=== PATIENT | female | born 1985 | race African-American/Black ===

== ENCOUNTER 2019-10-09 11:14 | Emergency (ER) | payer OTHER, SELFPAY ==
[2019-10-09 11:32] VITALS: BP 148/89; PULSE 87; RESP 16; TEMP 37.1; O2SAT 100
--- NOTE | 2019-10-09 11:34 | ED.URI ---
HPI - URI/Sore Throat General Chief Complaint: Upper Respiratory Infection Stated Complaint: Sore throat/migrane Time Seen by Provider: 10/09/19 11:34 Source: patient and RN notes reviewed Mode of arrival: ambulatory Limitations: no limitations History of Present Illness HPI Narrative: 34-year-old female presents with concern for 11-day history of nasal congestion, foul tasting postnasal drainage, lymph node tenderness. Reports a history of asthma, however she is not had an inhaler to use. She denies fever, malaise, body aches. Denies cough, shortness of breath MD elicited complaint: other (Postnasal drainage) Related Data Allergies Allergy/AdvReac Type Severity Reaction Status Date / Time No Known Allergies Allergy Verified 10/09/19 11:42 Review of Systems Review of Systems: Narrative: CONSTITUTIONAL: Denies malaise, chills, sweats, or fever. EYES: Denies visual changes, redness, or discharge. ENT: Reports rhinorrhea, congestion, sinus pain. Denies otalgia and sore throat. CARDIOVASCULAR: Denies chest pain, palpitations, or edema. RESPIRATORY: Denies cough or dyspnea. GASTROINTESTINAL: Denies abdominal pain, nausea, vomiting, diarrhea SKIN: Denies rash or itching. MUSCULOSKELETAL: Denies myalgia. NEUROLOGIC: Reports headache. All systems reviewed & are unremarkable except as noted in HPI and below PMFSH Past Medical History Medical History (Updated 10/09/19 @ 11:53 by Romelia Collazo NP) Asthma Surgical History Surgical History (Updated 03/06/19 @ 16:25 by FREDY Kendrick) Hx of tonsillectomy Comments At time of signature, agree with nursing past medical, surgical, social and family history. There is no relevant family history pertinent to the presenting complaint Exam Narrative: Exam Narrative: GENERAL: Well-appearing, well-nourished, and in no acute distress. HEAD: Normocephalic EYES: PERRLA, conjunctivae clear ENT: Nares clear, turbinates edematous and erythematous, clear discharge. Mucous membranes moist. TM pearly pavon with dull light reflex bilaterally; no tragal tenderness. Oropharynx erythematous without lesions. Tonsils enlarged and without exudate, no drooling, no hoarseness, no trismus, uvula midline. NECK: Supple. No lymphadenopathy CHEST: Clear to auscultation, breath sounds equal. No wheezing, rhonchi, rales, or stridor. No respiratory distress, speaks in full sentences. HEART: Regular rate and rhythm. No murmur heard. SKIN: Warm, dry, no rash. NEURO: Alert and oriented x3. PSYCH: Normal mood and affect Course Course Emergency Course: Patient is aware of diagnosis, understands and agrees to treatment plan. Anticipatory guidance given. Patient agrees to follow-up as directed and is aware of reasons to seek care at the emergency department. Portions of this record may have been created with voice recognition software Vital Signs Vital signs: Reviewed. Patient has been instructed to follow up with her primary care provider within the next week regarding her elevated blood pressure today. MDM - URI/Sore Throat MDM Narrative Medical decision making narrative: Differential diagnosis considered: Strep pharyngitis, allergic rhinitis, upper respiratory tract infection, sinusitis, rhinosinusitis, nasopharyngitis. viral pharyngitis, otitis media, otitis externa, pneumonia, bronchitis, viral cough syndrome, viral syndrome, and influenza. Exam findings show no acute concerns or changes; patient is non-toxic appearing and is in no distress. Patient is appropriate for outpatient treatment and follow-up. Lab Data Attestation: I reviewed the patient's lab results. Critical Care Time Critical Care Time Critical Care Time: No Discharge Plan Discharge Clinical Impression: Acute bacterial sinusitis, Medication refill Patient Disposition: Home, Self-Care Condition: Stable Instructions: Antibiotic Form, Sinusitis (ED) Additional Instructions: Symptomatic treatment of a sinus infection aims t
== END 2019-10-09 12:09 | disposition home or self-care (01) ==
PROVIDERS: Emergency Provider Nurse Practitioner; PCP Family Medicine
DX: J01.90 Acute sinusitis, unspecified (principal); B96.89 Other specified bacterial agents as the cause of diseases classified elsewhere; J45.909 Unspecified asthma, uncomplicated; R03.0 Elevated blood-pressure reading, without diagnosis of hypertension
CPT/HCPCS: 87081; 87880; 99213; G0463

== ENCOUNTER 2019-12-28 16:16 | Emergency (ER) | payer OTHER, SELFPAY ==
--- NOTE | ~2019-12-28 | XR_ITS ---
EXAMINATION: XR knee LT min 4V EXAM DATE: 12/28/2019 17:13 INDICATION: No known injury. Pain For 2 1/2 Weeks .Pt States Knee Carli. TECHNIQUE: Left knee frontal, crosstable lateral, orthogonal oblique projections for interpretation. There is no prior study for comparison. FINDINGS: No evidence osteochondral defect or joint body in the left knee joint. There are no acute fractures or dislocations identified. There is no subcutaneous gas. The soft tissue is unremarkabl e. There are no radiopaque foreign bodies. No joint effusion. IMPRESSION: 1. Unremarkable left knee exam. Reviewed, dictated and finalized at location A.
[2019-12-28 16:25] VITALS: BP 154/77; PULSE 77; RESP 14; TEMP 36.6; O2SAT 98
--- NOTE | 2019-12-28 16:52 | ED.GENADULT ---
HPI - General Adult General Chief complaint: Extremity Injury, Lower Stated complaint: left knee pain Time Seen by Provider: 12/28/19 16:53 Source: patient Mode of arrival: ambulatory Limitations: no limitations History of Present Illness HPI narrative: 34 year old female who presents to [facility] care with complaints of pain to her anterior left knee for the past 2.5 weeks.She denies any recent injury to her left knee. Patient states that she stands a lot at her work and has had to call off due to pain in her knee. Patient states that knee will buckle on her and she has fallen to the ground. No obvious edema noted, patient has full range of motion to her left knee with good stability noted on exam. MD complaint: left knee pain Onset (ago): week(s) (2.5) Location: left and lower extremity (anterior knee) Radiation: non-radiation Severity: moderate Severity scale (1-10): 6 Quality: other (throbbing) Pain Consistency: constant Relieving factors: rest Exacerbating factors: movement and other (ambulation) Associated symptoms: denies other symptoms Treatments prior to arrival: NSAID Related Data Home Medications Medication Instructions Recorded Confirmed ferrous sulfate 325 mg PO DAILY 12/28/19 12/28/19 Allergies Allergy/AdvReac Type Severity Reaction Status Date / Time No Known Allergies Allergy Verified 12/28/19 16:33 Review of Systems Review of Systems: Narrative: CONSTITUTIONAL: Denies fever, chills, or sweats. EYES: Denies visual changes, redness, or discharge. ENT: Denies rhinorrhea, congestion, sore throat, or otalgia. CARDIOVASCULAR: Denies chest pain, palpitations, or edema. RESPIRATORY: Denies cough or dyspnea. GASTROINTESTINAL: Denies abdominal pain, nausea, vomiting, or diarrhea. GENITOURINARY: Denies dysuria or hematuria. SKIN: Denies rash or itching. MUSCULOSKELETAL: Denies back pain,pain to anterior left knee joint, or myalgia. NEUROLOGIC: Denies headache, numbness, or weakness. PSYCHIATRIC: Denies anxiety or depression. All systems reviewed & are unremarkable except as noted in HPI and below PMFSH Past Medical History Medical History (Updated 12/28/19 @ 17:01 by Maria C Moy NP) Anemia Asthma Kidney stone Migraines Surgical History Surgical History (Updated 12/28/19 @ 17:01 by Maria C Moy NP) H/O lithotripsy Hx of tonsillectomy Social History Social History (Updated 12/31/19 @ 09:04 by Maria C Moy NP) Smoking status: Never smoker Alcohol intake: unknown Substance use: unknown Living arrangements: with family Gender identity (if verbalized by the patient): Female Comments At time of signature, agree with nursing past medical, surgical, social history. There is no relevant family history pertinent to the presenting complaint Exam Narrative: Exam Narrative: GENERAL: Well-appearing, well-nourished, and in no acute distress. HEAD: Normocephalic, atraumatic. EYES: PERRLA and EOMI. ENT: Nares clear, no rhinorrhea or epistaxis. Mucous membranes moist.TM's normal with good light reflex, throat pink with no swelling or tonsil enlargement. NECK: Supple.no lymphadenopathy CHEST: Clear to auscultation. No respiratory distress.SAO2 98% on room air HEART: Regular rate and rhythm. No murmur heard. Normal peripheral pulses. ABDOMEN: Soft, nontender, nondistended, normal active bowel sounds. EXTREMITIES: Normal range of motion. No edema.positive for pain to her left anterior knee, negative drawer test, no increase in pain with inversion or eversion of left lower leg, no radiation of pain or any noted edema.Circulation and sensation intact to left lower leg and foot. SKIN: Warm, dry, no rash. NEURO: No focal deficits. Alert and oriented x3. Course Vital Signs Vital signs: Vital Signs Temperature 36.6 C 12/28/19 16:25 Pulse Rate 77 12/28/19 16:25 Respiratory Rate 14 12/28/19 16:25 Blood Pressure 154/77 H 12/28/19 16:25 Pulse Oximetry 98 12/28/19 16:25
== END 2019-12-28 17:35 | disposition home or self-care (01) ==
PROVIDERS: Emergency Provider Registered Nurse
DX: M25.562 Pain in left knee (principal); J45.909 Unspecified asthma, uncomplicated
CPT/HCPCS: 73564; 99213; G0463

== ENCOUNTER 2020-09-10 10:47 | Emergency (ER) | payer OTHER, SELFPAY ==
[2020-09-10 11:03] VITALS: BP 147/74; PULSE 69; RESP 14; TEMP 36.8; O2SAT 100
--- NOTE | 2020-09-10 12:08 | ED.FEMALEGU ---
HPI - Female Genitourinary General Chief complaint: Urogenital-Female Stated complaint: poss yeast infection Source: patient Mode of arrival: ambulatory Limitations: no limitations History of Present Illness HPI Narrative: Patient is a 35-year-old female who presents complaining of vaginal discharge. She reports fishy odor and grayish-whitish discharge. She denies itching, she denies pain. She reports using Monistat earlier this week without relief. She reports in a monogamous relationship. She denies pelvic pain or other complaints. Patient has no significant medical history. MD elicited complaint: vaginal discharge Related Data Allergies Allergy/AdvReac Type Severity Reaction Status Date / Time No Known Allergies Allergy Verified 09/10/20 11:12 Review of Systems Review of Systems: Narrative: CONSTITUTIONAL: Denies fever, chills, or sweats. EYES: Denies visual changes, redness, or discharge. ENT: Denies rhinorrhea, congestion, sore throat, or otalgia. CARDIOVASCULAR: Denies chest pain, palpitations, or edema. RESPIRATORY: Denies cough or dyspnea. GASTROINTESTINAL: Denies abdominal pain, nausea, vomiting, or diarrhea. GENITOURINARY: Reports vaginal discharge SKIN: Denies rash or itching. MUSCULOSKELETAL: Denies back pain, joint pain, or myalgia. NEUROLOGIC: Denies headache, numbness, dizziness, or weakness. PSYCHIATRIC: Denies anxiety or depression. [facility] Past Medical History Medical History Anemia HTN (hypertension) Multiple kidney stones Surgical History Surgical History H/O lithotripsy Hx of tonsillectomy Social History Social History (Updated 09/10/20 @ 12:11 by FREDY Regan) Smoking status: Never smoker Alcohol intake: current Alcohol use details: occasional Substance use: never Living arrangements: with family Exam Narrative: Exam Narrative: GENERAL: Well-appearing, well-nourished, and in no acute distress. HEAD: Normocephalic, atraumatic. EYES: EOMI. No redness or drainage. Conjunctiva are normal. ENT: Mucous membranes pink and moist. CHEST: No respiratory distress. HEART: Regular rate and rhythm. GI: Soft, nontender without rebound, or guarding. No distention. Bowel sounds normal in all quadrants. Pelvic Exam: Copius amount of yellowish vaginal discharge noted upon exam, normal vaginal simental, no external lesions. MUSCULOSKELETAL: No bony tenderness. EXTREMITIES: Normal range of motion. No edema. SKIN: Warm, dry, no rash. NEURO: No focal deficits. Alert and oriented x3. Gait steady. PSYCH: Normal affect. No signs of depression or anxiety. Course Vital Signs Vital signs: Vital Signs Temperature 36.8 C 09/10/20 11:03 Pulse Rate 69 09/10/20 11:03 Respiratory Rate 14 09/10/20 11:03 Blood Pressure 147/74 H 09/10/20 11:03 Pulse Oximetry 100 09/10/20 11:03 Temperature 36.8 C 09/10/20 11:03 Pulse Rate 69 09/10/20 11:03 Respiratory Rate 14 09/10/20 11:03 Blood Pressure 147/74 H 09/10/20 11:03 Pulse Oximetry 100 09/10/20 11:03 Reviewed-patient is informed that they may have pre-hypertension or hypertension based on a blood pressure reading. I recommend the patient call the primary care provider listed on their discharge instructions or a physician of their choice this week to arrange follow-up for further evaluation of possible pre-hypertension or hypertension. MDM - Female Genitourinary MDM Narrative Medical decision making narrative: Patient patient reports a history of bacterial vaginosis. Patient requesting treatment for BV at this time. STD cultures sent as well at this time. Patient declines prophylactic STD treatment at this time but requesting treatment for BV as she has had in the past. Patient aware that Urgent care will follow up with patient about results. Patient agrees with plan of care. Patient is stable
== END 2020-09-10 12:28 | disposition home or self-care (01) ==
PROVIDERS: Emergency Provider Nurse Practitioner; PCP Family Medicine
DX: N89.8 Other specified noninflammatory disorders of vagina (principal); I10 Essential (primary) hypertension; Z87.442 Personal history of urinary calculi
CPT/HCPCS: 87070; 87077; 87491; 87591; 87661; 99214; G0463

== ENCOUNTER 2021-01-12 17:41 | Emergency (ER) | payer OTHER, SELFPAY ==
[2021-01-12 17:45] VITALS: BP 155/99; PULSE 70; RESP 20; TEMP 36.7; O2SAT 99
--- NOTE | 2021-01-12 17:55 | ED.URI ---
HPI - URI/Sore Throat General Chief Complaint: Upper Respiratory Infection Stated Complaint: ears and throat Time Seen by Provider: 01/12/21 17:55 Source: patient Mode of arrival: ambulatory History of Present Illness HPI Narrative: Radha Ordoñez is a 35 yo female with PMH kidney stones, asthma, hypertension, prediabetes, [facility] and bilateral ear pain x5 days. No fever, no nausea vomiting or diarrhea. Rates her throat pain is 8 with swallowing Related Data Home Medications Medication Instructions Recorded Confirmed albuterol sulfate 2 puff INHALATION QID PRN 01/12/21 01/12/21 Allergies Allergy/AdvReac Type Severity Reaction Status Date / Time No Known Allergies Allergy Verified 01/12/21 18:07 Review of Systems Review of Systems: CONSTITUTIONAL: Denies fever, chills, sweats. EYES: Denies visual changes, redness, discharge. ENT: Denies rhinorrhea, congestion, has sore throat, bilateral otalgia. CARDIOVASCULAR: Denies chest pain, palpitations, edema. RESPIRATORY: Denies dyspnea, wheezing, cough GASTROINTESTINAL: Denies abdominal pain, nausea, vomiting, diarrhea. GENITOURINARY: Denies dysuria, hematuria, abnormal discharge SKIN: Denies rash or itching. NEUROLOGIC: Denies numbness, or focal weakness. PSYCHIATRIC: Denies anxiety or depression. [facility] Past Medical History Medical History (Updated 01/12/21 @ 18:13 by Myra Che CNP) Anemia Asthma HTN (hypertension) Multiple kidney stones Surgical History Surgical History H/O lithotripsy Hx of tonsillectomy Social History Social History (Updated 09/10/20 @ 12:11 by FREDY Regan) Smoking status: Never smoker Alcohol intake: current Alcohol use details: occasional Substance use: never Comments At time of signature, I agree with nursing past medical, surgical, social and family history. There is no relevant family history pertinent to the presenting complaint. Exam Narrative: GENERAL: This is a well-nourished, well-developed patient, in mild distress. HEAD: normocephalic, atraumatic. EYES: Sclera clear/white. Vision is grossly intact. EARS: External ears normal, auditory canals clear and without drainage, TMs bulging without perforation. Hearing grossly intact. NOSE: External nose normal without nasal discharge, nares without redness, no rhinorrhea. THROAT: Mucous membranes moist, posterior pharynx erythema with bilateral tender enlarged lymph nodes submandibular NECK: Neck supple,tender CARDIOVASCULAR: Regular rate and rhythm without murmurs, gallops, or rubs. RESPIRATORY: Clear to auscultation. Breath sounds equal bilaterally. No wheezes, rales, or rhonchi. GASTROINTESTINAL: Abdomen soft, non-tender, SKIN: warm, intact with no suspicious lesions or rash, good texture and turgor. NEURO: awake, alert, and oriented to person, place and time. There were no obvious focal neurologic abnormalities. Steady gait EXTREMITIES: Normal range of motion. BACK: Nontender without deformity Course Course Emergency Course: Patient comes to [facility] complaints of sore throat bilateral ear pain x5 days, has taken only Tylenol and antihistamine combination Strep test negative, Complaining of 8 out of 10 throat pain, bilateral ear pain, started on Augmentin empirically, zyrtec, prednisone Follow up with pcp Vital Signs Vital signs: Vital Signs Temperature 98.1 F 01/12/21 17:45 Pulse Rate 70 01/12/21 17:45 Respiratory Rate 20 01/12/21 17:45 Blood Pressure 155/99 H 01/12/21 17:45 Pulse Oximetry 99 01/12/21 17:45 Temperature 98.1 F 01/12/21 17:45 Pulse Rate 70 01/12/21 17:45 Respiratory Rate 20 01/12/21 17:45 Blood Pressure 155/99 H 01/12/21 17:45 Pulse Oximetry 99 01/12/21 17:45 MDM - URI/Sore Throat Differential Diagnosis Differential diagnosis: Likely upper respiratory infection, otitis media, sinusitis, v
== END 2021-01-12 18:17 | disposition home or self-care (01) ==
PROVIDERS: Emergency Provider Nurse Practitioner
DX: J02.9 Acute pharyngitis, unspecified (principal); J45.909 Unspecified asthma, uncomplicated; I10 Essential (primary) hypertension; D64.9 Anemia, unspecified; R73.03 Prediabetes
CPT/HCPCS: 87081; 87880; 99213; G0463

== ENCOUNTER 2021-12-29 08:51 | Emergency (ER) | payer OTHER, SELFPAY ==
[2021-12-29 09:06] VITALS: BP 148/89; PULSE 79; RESP 20; TEMP 36.6; O2SAT 100
--- NOTE | 2021-12-29 09:45 | ED.URI ---
HPI - URI/Sore Throat General Chief Complaint: Upper Respiratory Infection Stated Complaint: sore throat drainage ears Time Seen by Provider: 12/29/21 09:45 Source: patient, RN notes reviewed and old records reviewed Mode of arrival: ambulatory Limitations: no limitations History of Present Illness HPI Narrative: 36-year-old female who presents to [facility] with complaints of sore throat, greenish nasal mucous, some tenderness to her neck for the past 4 day duration with some feeling like her throat is swollen. Patient reports that she has taken Ibuprofen, DayQuil and NyQuil for her symptoms.. MD elicited complaint: sore throat, rhinorrhea and nasal congestion Pain scale (0-10): 7 Treatments prior to arrival: ibuprofen and cold medicine Related Data Home Medications Medication Instructions Recorded Confirmed ferrous sulfate 325 mg (65 mg 325 mg PO DAILY 12/28/19 12/28/19 iron) tablet Allergies Allergy/AdvReac Type Severity Reaction Status Date / Time No Known Allergies Allergy Verified 12/28/19 16:33 Review of Systems Review of Systems: CONSTITUTIONAL: Denies malaise, chills, sweats, or fever. EYES: Denies visual changes, redness, or discharge. ENT: Reports rhinorrhea, congestion, sinus pain,no otalgia positive for sore throat. CARDIOVASCULAR: Denies chest pain, palpitations, or edema. RESPIRATORY: Reports cough.? Denies dyspnea. GASTROINTESTINAL: Denies abdominal pain, nausea, vomiting, diarrhea SKIN: Denies rash or itching. MUSCULOSKELETAL: Denies myalgia. NEUROLOGIC: Denies headache. All systems reviewed & are unremarkable except as noted in HPI and below PMFSH Past Medical History Medical History (Updated 12/30/21 @ 00:00 by Priyanka Durand) Anemia Asthma Kidney stone Migraines Surgical History Surgical History (Updated 12/28/19 @ 17:01 by Maria C Moy NP) H/O lithotripsy Hx of tonsillectomy Social History Social History (Updated 12/31/19 @ 09:04 by Maria C Moy NP) Smoking status: Never smoker Alcohol intake: unknown Substance use: unknown Gender identity (if verbalized by the patient): Female Comments At time of signature, agree with nursing past medical, surgical, social and family history. There is no relevant family history pertinent to the presenting complaint Exam Narrative: GENERAL: Well-appearing, well-nourished, and in no acute distress. HEAD: Normocephalic EYES: PERRLA, conjunctivae clear ENT: Nares clear, turbinates edematous and erythematous, reported greenish discharge. Mucous membranes moist. TM pearly pavon with dull light reflex bilaterally; no tragal tenderness. Oropharynx erythematous without lesions. Tonsils not present no pharyngeal exudate, no drooling, no hoarseness, no trismus, uvula midline. NECK: Supple. No lymphadenopathy CHEST: Clear to auscultation, breath sounds equal. No wheezing, rhonchi, rales, or stridor. No respiratory distress, speaks in full sentences. HEART: Regular rate and rhythm. No murmur heard. SKIN: Warm, dry, no rash. NEURO: Alert and oriented x3. PSYCH: Normal mood and affect Course Course Emergency Course: Patient is aware of diagnosis, understands and agrees to treatment plan.? Anticipatory guidance given.? Patient agrees to follow-up as directed and is aware of reasons to seek care at the emergency department. Portions of this record may have been created with voice recognition software Level of Care: [facility] Visit Vital Signs Vital signs: Vital Signs Temperature 36.6 C 12/29/21 09:06 Pulse Rate 79 12/29/21 09:06 Respiratory Rate 20 12/29/21 09:06 Blood Pressure 148/89 H 12/29/21 09:06 Pulse Oximetry 100 12/29/21 09:06 Oxygen Delivery Room Air 12/29/21 09:06 Temperature 36.6 C 12/29/21 09:06 Pulse Rate 79 12/29/21 09:06 Respiratory Rate 20 12/29/21 09:06 Blood Pressure 148/89 H 12/29/21 09:06 Pulse Oximetry 100 12/29/21 09:0
== END 2021-12-29 10:15 | disposition home or self-care (01) ==
PROVIDERS: Emergency Provider Registered Nurse; PCP Family Medicine
DX: J06.9 Acute upper respiratory infection, unspecified (principal); J02.9 Acute pharyngitis, unspecified; D64.9 Anemia, unspecified; J45.909 Unspecified asthma, uncomplicated
CPT/HCPCS: 87081; 87880; 99213; G0463

== ENCOUNTER 2023-03-08 09:43 | Emergency (ER) | payer OTHER, SELFPAY ==
[2023-03-08 09:48] VITALS: BP 161/80; PULSE 77; RESP 16; TEMP 36.8; O2SAT 100
--- NOTE | 2023-03-08 10:07 | ED.FEMALEGU ---
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 She reports 3 day history of yellow/green vaginal discharge. She reports it started off is clear. She reports she has also been having urine frequency without a large amount of urine. She denies dysuria, urgency, fever, chills, sweats, nausea, back pain, abdominal pain. She reports history of BV but feels that this is not like her typical BV symptoms and the nature of the discharge is different. She reports history of unprotected sex, does not know any specific exposure to STI MD elicited complaint: UTI Related Data Allergies Allergy/AdvReac Type Severity Reaction Status Date / Time No Known Allergies Allergy Verified 01/12/21 18:07 Review of Systems Review of Systems: CONSTITUTIONAL: Denies malaise, chills, sweats, or fever. CARDIOVASCULAR: Denies chest pain, palpitations, or edema. RESPIRATORY: Denies cough or dyspnea. GASTROINTESTINAL: Denies abdominal pain, nausea, vomiting, diarrhea GENITOURINARY: Denies dysuria, urgency, suprapubic pressure. Denies flank pain or hematuria. Reports urine frequency, abnormal vaginal discharge SKIN: Denies rash or itching. MUSCULOSKELETAL: Denies back pain or myalgia. 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 There is no relevant family history pertinent to the presenting complaint Exam Narrative: GENERAL: Well-appearing, well-nourished, and in no acute distress. HEAD: Normocephalic. EYES: PERRLA, conjunctivae clear. NECK: Supple. No lymphadenopathy CHEST: Clear to auscultation. No respiratory distress. HEART: Regular rate and rhythm. ABDOMEN: Soft, nontender upon palpation, nondistended, normal active bowel sounds, no palpable or pulsatile masses, no guarding. No CVA tenderness SKIN: Warm, dry, no rash. NEURO: Alert and oriented x3. PSYCH: Normal mood and affect Declined pelvic exam Course Course Emergency Course: Patient is aware of diagnosis, understands and agrees to treatment plan. Anticipatory guidance given. Patient agrees to follow-up as directed and is aware of reasons to seek care at the emergency department. Portions of this record may have been created with voice recognition software Level of Care: [facility] Visit Vital Signs Vital signs: Vital Signs Temperature 98.2 F 03/08/23 09:48 Pulse Rate 77 03/08/23 09:48 Respiratory Rate 16 03/08/23 09:48 Blood Pressure 161/80 H 03/08/23 09:48 Pulse Oximetry 100 03/08/23 09:48 Oxygen Delivery Room Air 03/08/23 09:48 Temperature 98.2 F 03/08/23 09:48 Pulse Rate 77 03/08/23 09:48 Respiratory Rate 16 03/08/23 09:48 Blood Pressure 161/80 H 03/08/23 09:48 Pulse Oximetry 100 03/08/23 09:48 Oxygen Delivery Room Air 03/08/23 09:48 Reviewed. MDM - Female Genitourinary MDM Narrative Medical decision making narrative: Exam findings and UA show no acute concerns or changes; patient is non-toxic appearing and is in no distress. Patient is appropriate for outpatient treatment and follow
[2023-03-08] MEDS: cefTRIAXone 500 MG, LIDOCAINE HCL 1% LOCAL INJ 1 ML IM (10:45)
[2023-03-08 19:36] LABS: Trichomonas Vag PCR DETECTED (NOT DETECTE)
[2023-03-08 20:12] LABS: Chlamydia trachomatis NOT DETECTED (NOT DETECTE); Neisseria gonorrhoeae PCR NOT DETECTED (NOT DETECTE)
== END 2023-03-08 11:06 | disposition home or self-care (01) ==
PROVIDERS: Emergency Provider Nurse Practitioner
DX: A59.9 Trichomoniasis, unspecified (principal); N39.0 Urinary tract infection, site not specified; J45.909 Unspecified asthma, uncomplicated; I10 Essential (primary) hypertension
CPT/HCPCS: 81003; 87086; 87491; 87591; 87661; 96372; 99213; G0463; J0696